=== PATIENT | female | born 1990 | race Caucasian/White ===

== ENCOUNTER → 2017-12-22 | Outpatient (CLI) | payer BC ==
[~2017-12-22] MED LIST: NABUMETONE 750750 M1 PO; PROBIOTIC1 EAC1 PO; TRINATE TABLET1 TAB PO
--- NOTE | 2017-12-23 08:24 | PAINCON ---
[address] [address] PAIN MANAGEMENT CONSULTATION Name: AVELINO CORCORAN Amanda Room: [facility]#: [id number] Admission: 12/22/17 Attend Phys: Mary Andrea Discharge: Date of : 89 Report #: [id number] THIS REPORT FOR: //name// CC: Qiana Damon The patient is a 27-year-old female, prior seen in the pain clinic 2 years ago for lumbar radicular pain. She had excellent relief following single epidural injection, 02/12/2016. Majority of last year she was . She gave to full term 4 months ago. She notes during about first to second trimester, pain recurred in the low back, now ongoing axial back pain with really nominal radicular component. She notes pain is in the low back with some right greater than left leg issue, but really not much below the knee. She rates her subjective pain score 2 on a VAS, but gets up to 6-8 with activity. Physical exam shows 5 feet 7 inch female, 339 pounds, BMI is elevated >40 kilograms per meter squared, blood pressure 131/88, pulse 60, respirations 16. Alert and oriented to person, place and time, judged to be a reasonable historian. Rises from chair using armrest. Gait is tandem. Very tender over the SI joints, right greater than left. Dee Dee test is positive bilaterally. Lower extremity strength is generally symmetric. Straight leg raise negative at this time. Review of diagnostic studies from the patient's prior visit back in 2015, study dated 12/18/2015 notes intervertebral disk from T12-L1 through L4-L5 appearing normal. L5-S1 did show a right paracentral disk abutting the right S1 nerve root. Again, at that time the patient had had L5 right radicular pain. ASSESSMENT: 1. Today is bilateral sacroiliac mediated pain by clinical exam and history. 2. History of lumbar radiculopathy. 3. Recent of a full term intrauterine gestation. RECOMMENDATIONS: 1. The patient is not presently. We will continue nonsteroidal anti-inflammatory agent, the patient is using Aleve [id number]. 2. Bilateral SI joint injection under fluoroscopy today. 3. We discussed core strengthening exercises using a balance ball. Follow up in 4-6 weeks for reevaluation, may consider epidural injection if radicular symptoms are problematic at that time. Thank you for allowing me to participate in the patient's care. PROCEDURE NOTE: Bilateral SI joint injection under fluoroscopy. PROCEDURE NOTE: After written and informed consent was obtained including risk of infection, nerve trauma, increased pain and weakness, [place] [address] PAIN MANAGEMENT CONSULTATION Name: AVELINO CORCORAN [id number] Admission: 12/22/17 Attend Phys: Mary Andrea Discharge: Date of : 89 Report #: [id number] proceed. The patient was taken to the fluoroscopy suite, placed in the prone position. The sacroiliac joint was visualized using the C-arm, turned in an oblique fashion to align the joint. The skin overlying the area was cleansed with ChloraPrep. Skin wheal with Xylocaine was raised. A 22 gauge spinal needle was inserted into the inferior aspect of the joint. A low volume extension tubing was then attached to the needle after the stylet was removed. Negative aspiration was accomplished. A 1 mL of Omnipaque was injected which showed spread within the SI joint. 40 mg triamcinolone plus 2 mL of 0.5% preservative-free bupivacaine was injected into the joint. Needle was removed. Attention was then turned to the contralateral joint which was treated in an identical fashion. After both needles were removed the prep was washed off. Two Band-Aids were applied over the puncture sites. The patient was allowed to ambulate to the recovery room, monitored for an appropriate period of time, discharged in good and stable condition. Fluoroscopy time was under 15 seconds. <ELECTRONICALLY SIGNED> By: Anthony Damon DO 12/23/17 [id number] Damon DO /nt
== END | disposition home or self-care (01) ==
LOC: M.PC 01:23
DX: M53.3 Sacrococcygeal disorders, not elsewhere classified (principal); M54.16 Radiculopathy, lumbar region; Z98.890 Other specified postprocedural states